=== PATIENT | female | born 1955 | race Caucasian/White ===

== ENCOUNTER 2022-09-05 08:31 | Outpatient (CLI) | payer MEDICARE, OTHER, SELFPAY ==
[2022-09-05 12:10] LABS: Chloride* 107 mmol/L (96-114); Potassium* 4.7 mmol/L (3.6-5.1); Sodium* 139 mmol/L (135-149)
[2022-09-05 12:13] LABS: Blood Urea Nitrogen* 14 mg/dL (7-30); Carbon Dioxide* 24 mmol/L (20-32); Cholesterol* 216 mg/dL (90-199); Creatinine* 0.7 mg/dL (0.5-1.5); Estimated Glomerular Filt Rate 94 ml/min; Glucose* 83 mg/dL (60-115); Triglycerides* 88 mg/dL (40-149)
[2022-09-05 12:14] LABS: Calcium* 8.9 mg/dL (8.4-10.6); HDL Cholesterol* 65 mg/dL (>=50); LDL Cholesterol Calculated 133 mg/dL (<100)
== END 2022-09-05 08:32 | disposition home or self-care (01) ==
PROVIDERS: PCP Family Medicine; Visit Provider Family Medicine
DX: I10 Essential (primary) hypertension (principal); E78.5 Hyperlipidemia, unspecified
CPT/HCPCS: 80048; 80061

== ENCOUNTER 2022-12-05 14:58 | Outpatient (CLI) | payer MEDICARE, OTHER, SELFPAY ==
--- NOTE | 2022-12-05 15:20 | CRLHL7_ITS ---
For Patients: As a result of the Century Cures Act, medical imaging exams and procedure reports are released immediately into your electronic medical record. You may view this report before your referring provider. If you have questions, please contact your health care provider. BILATERAL SCREENING MAMMOGRAM WITH COMPUTER-AIDED DETECTION AND TOMOSYNTHESIS TECHNIQUE: CC and MLO views were obtained. These mammographic images have been obtained using full-field digital technique. These mammographic images were interpreted with the benefit of computer-aided detection. Breast Tomosynthesis was used in this interpretation. COMPARISON FILM: 09/24/21, 08/21/20. FINDINGS: There are scattered areas of fibroglandular density IMPRESSION: There is no radiographic evidence for malignancy. ASSESSMENT: BI-RADS Category 2: Benign RECOMMENDATION: Routine screening mammogram in 1 year. A lay language report of this examination will be provided to the patient. Charles Karimi M.D. Diagnostic Radiologist [email or web address] JUSTYN/Dictated by: Charles Karimi MD @ 12/08/2022 10:16:00 AM (Electronically Signed)
== END 2022-12-05 14:59 | disposition home or self-care (01) ==
LOC: MAMMO 15:01
PROVIDERS: PCP Family Medicine; Visit Provider Family Medicine
DX: Z12.31 Encounter for screening mammogram for malignant neoplasm of breast (principal)
CPT/HCPCS: 77063; 77067

== ENCOUNTER 2023-09-18 11:27 | Outpatient (CLI) | payer MEDICARE, OTHER, SELFPAY | END 2023-09-18 11:28 | disposition home or self-care (01) | LOC: NFLDREF 09-19 02:33 | PROVIDERS: PCP Family Medicine; Referring Provider Family Medicine; Visit Provider Family Medicine | DX: I10 Essential (primary) hypertension (principal); E78.2 Mixed hyperlipidemia; K21.9 Gastro-esophageal reflux disease without esophagitis; H61.21 Impacted cerumen, right ear | CPT/HCPCS: 80048; 80061 ==

== ENCOUNTER 2023-11-10 15:20 | Outpatient (CLI) | payer MEDICARE, OTHER, SELFPAY ==
--- OUTSIDE RECORDS SUMMARY | 2023-11-10 15:23 | XMS_ITS | Clinical Summary ---
Author Name Unknown Organization [facility] Address [place], [place] [address] Care Team Providers Care Photo Equipment Technician Name Role Phone Charles Carreno MD Primary Care Provider + Allergies No known active allergies Medications Medication Sig Dispensed Refills Start Date End Date Status multivitamin (MVI) tablet Take 1 tablet by mouth once daily. 0 06/13/2013 Active Lactobacillus acidophilus (PROBIOTIC) 10 billion cell cap Take by mouth. 0 07/20/2015 Acti ve calcium carbonate CHEWABLE (TUMS) 750 mg chewable tablet Take 1 tablet by mouth 3 times daily with meals. 0 07/20/2015 Active omeprazole (PRILOSEC) 20 mg Delayed-Release capsuleIndications:Ga stroesophageal reflux disease, esophagitis presence not specified Take 1 capsule by mouth once daily before a meal. 90 capsule 1 07/31/2016 Active letrozole (FEMARA) 2.5 mg tabletIndications:Arcelia madelin cancer of right breast (HC) Take 1 Tablet (2.5 mg) by mouth once daily. 90 Tablet 2 07/26/2021 Active lisinopril-hydrochlor othiazide 20-12.5 mg tablet (PRINZIDE)Indications :Hypertension, unspecified type Take 1 Tablet by mouth once daily. 90 Tablet 0 09/18/2021 Active Active Problems Problem Noted Date Diagnosed Date Ileitis 03/19/2018 Overview: Colonoscopy 03/2018 ulceration of ileal colonic colonic anastomosis, possible Crohn's disease, recommend follow-up to discuss, repeat in 10 years Malignant neoplasm of central portion of female breast 10/02/2016 Hypertension 07/28/2012 Immunizations Name Administration Dates Next Due Influenza RIV4 (Age 18+ Years) PRESERV FREE 10/2018 Influenza Virus, Unspecified 05/05/2014 Influenza, IIV3 (Age >=3 years) 07/20/2015,06/13,07/28/2012 Influenza, IIV4 06/29/2018,07/05/2017,07/14/2016 Influenza, IIV4 (=>6mos) MDV 07/02/2017 Influenza, Inactivated IIV3 (Age 65+ Years) Preserv Free 07/02/2020 Pneumococcal Poly,23-Valent (Pneumovax) 08/21/20 20 Pneumococcal conj 13-Valent (Prevnar 13) 019 Tdap 06/13/2013 Tetanus Toxoid 06/05/2013 Zoster (Zostavax-ZVL, live) 04/29/2014 Family History Medical History Relation Name Comments Other Father copd Thyroid Disease Father Cancer-breast No Family History Relation Name Status Comments Father Alive Social History Tobacco Use Types Packs/Day Years Used Date Smoking Tobacco: Former Cigarettes 1 28 0 10/1971 - 10/1999 Smokeless Tobacco: Never Tobacco Cessation:Counseling Given: Yes Alcohol Use Standard Drinks/Week Comments Yes 14 (1 standard drink = 0.6 oz pu re alcohol) 2/day PHQ-2 Answer Date Recorded PHQ-2 TOTAL SCORE 0 08/21/2020 Social Connections Answer Date Recorded Frequency of Communication with Friends and Fami ly Not on file 10/05/2021 Financial Resource Strain Answer Date R ecorded Difficulty of Paying Living Expenses Not on file 10/05/2021 Difficulty of Paying Living Expenses Not on file 10/05/2021 Sex and Gender Information Value Date Recorded Sex Assigned at Not on file Gender Identity Not on file Sexual Orientation Not on file Obstetrics History Para Term AB IAB SAB Ectopic Multiple Livin g Live Births 1 1 1 Date Outcome GA Total Labor Labor/2nd/3rd Weight Sex Delivery Anes PTL Va A1 A5 Name Cl in Term Last Filed Vital Signs Vital Sign Reading Time Taken Comments Blood Pressure 112/79 08/21/2020 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 Pulse 69 08/21/2020 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 Temperature 37.1 ??C (98.7 ??F) 08/21/2020 9:56 AM CS T Respiratory Rate - - Oxygen Saturation 95% 08/21/2020 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 Inhaled Oxygen Concentration - - Weight 78.8 kg (173 lb 12.8 oz) 08/21/2020 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 Height 162.5 cm (5' 3.98) 08/21/2020 9:56 AM CS T Body Mass Index 29.86 08/21/2020 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 Plan of Treatment Health Maintenance Due Date Last Done Comments COVID-19 vaccine series (#1) 1955 Zoster (shingles) series for age 50+ (2 of 3) 06/24/2014 04/29/2014 DEXA/DXA scan for age 65+ 2019 11/03/2016 BMI (ht and wt on same day) for age 18+ 08/21/2021 08/21/2020, 08/18/2019, 08/10/2018, Additional history exists Depression screening for age 12+ 08/21/2021 08/21/2020, 08/18/2019, 08/10/2018, Additional history exists Mammogram for age 45-75 08/21/2021 08/21/20 20, 08/18/2019, 08/10/2018, Additional history exists Medicare Wellness for age 65+ 08/22/2021 08/21/2020, 08/18/2019 Influenza for age 65+ 06/05/2023 07/02/2020 , 07/05/2019, 06/29/2018, Additional history exists Tetanus booster 06/13/2023 06/13/2013, 06/13/2013 Lipids for age 45-75 08/21/2025 08/21/2020, 08/18/2019, 08/10/2018, Additional history exists Colonoscopy through age 75 03/18/2028 03/18/2018, Tdap Completed 06/13/2013 Hepatitis C screening for ag e 18-79 Completed 08/06/2017 Pneumococcal series for age 65+ Completed 0, 07/05/2019 Care Teams Photo Equipment Technician Relationship Specialty Start Date End Date Charles Carreno MD [address] [place] [address] PCP - General Family Practice 07/26/21
--- NOTE | 2023-11-10 15:40 | CRLHL7_ITS ---
For Patients: As a result of the Century Cures Act, medical imaging exams and procedure reports are released immediately into your electronic medical record. You may view this report before your referring provider. If you have questions, please contact your health care provider. BILATERAL DIGITAL SCREENING MAMMOGRAM WITH TOMOSYNTHESIS AND COMPUTER-AIDED DETECTION CLINICAL HISTORY: Routine screening exam. COMPARISON: 12/05/2022, 09/24/2021, 08/21/20. TECHNIQUE: Digital mammogram in CC and MLO projections including computer-aided detection (CAD). Tomosynthesis utilized. BREAST COMPOSITION: There are areas of scattered fibroglandular density. FINDINGS: RIGHT Breast: Focal asymmetric density lateral RIGHT breast 7 cm from the nipple. LEFT Breast: No suspicious findings. IMPRESSION: RIGHT breast asymmetry/mass. RECOMMENDATIONS: Additional mammographic views of the RIGHT breast including 3D spot compression CC/MLO. RIGHT breast ultrasound may also be required. BI-RADS Category 0: Incomplete: Need Additional Imaging Evaluation and/or Prior Mammograms for Comparison [facility] will contact the patient for follow-up. A lay language report of this examination will be provided to the patient. Dictated by Charles Karimi MD @ 11/12/2023 12:05:20 PM claribelj/Dictated by: Charles Karimi MD @ 11/12/2023 12:05:00 PM (Electronically Signed)
== END 2023-11-10 15:21 | disposition home or self-care (01) ==
LOC: MAMMO 15:21
PROVIDERS: PCP Family Medicine; Visit Provider Family Medicine
DX: Z12.31 Encounter for screening mammogram for malignant neoplasm of breast (principal); N63.20 Unspecified lump in the left breast, unspecified quadrant
CPT/HCPCS: 77063; 77067

== ENCOUNTER 2023-11-12 14:08 | Outpatient (CLI) | payer MEDICARE, OTHER, SELFPAY ==
--- OUTSIDE RECORDS SUMMARY | 2023-11-12 14:28 | XMS_ITS | Clinical Summary ---
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 Pulse 69 08/21/2020 9:56 AM TRAFFIC SIGNAL SUPERVISOR MAINTENANCE Temperature 37.1 ??C (98.7 ??F) 08/21/2020 9:56 AM CS T Respiratory Rate - - Oxygen Saturation 95% 08/21/2020 9:56 AM TRAFFIC SIGNAL SUPERVISOR MAINTENANCE Inhaled Oxygen Concentration - - Weight 78.8 kg (173 lb 12.8 oz) 08/21/2020 9:56 AM TRAFFIC SIGNAL SUPERVISOR MAINTENANCE Height 162.5 cm (5' 3.98) 08/21/2020 9:56 AM CS T Body Mass Index 29.86 08/21/2020 9:56 AM TRAFFIC SIGNAL SUPERVISOR 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
--- NOTE | 2023-11-12 14:30 | CRLHL7_ITS ---
For Patients: As a result of the Century Cures Act, medical imaging exams and procedure reports are released immediately into your electronic medical record. You may view this report before your referring provider. If you have questions, please contact your health care provider. DXA BONE MINERAL DENSITY STUDY Current height (in): 63.5. Weight (lb): 180. Menopause age: 49. Ethnicity: White. 1. Have you had a previous hip or vertebral fracture? No. 2. Have you had any fractures during your adult life which did not result from significant trauma (e.g., auto accident)? No. 3. Did either of your parents have a hip fracture? No. 4. Do you smoke? No. 5. Have you ever taken Glucocorticoids? Yes. 6. Do you have rheumatoid arthritis? No. 7. Do you have secondary osteoporosis? No. 8. Do you drink 3 or more alcoholic drinks per day? No. 9. Are you being treated for osteoporosis? No. 10. Have you ever taken any of the following medications: Actonel, Evista, Fosamax, Miacalcin, Reclast, Boniva, Forteo, HRT (i.e. estrogen/hormone therapy), Protelos, Prolia, Vitamin D, Calcium, other ??? please specify. ANSWER: Yes, Vitamin D and Calcium. 11. Do you have any of the following medical conditions: Anorexia or bulimia, asthma or emphysema, end stage renal disease, hyperparathyroidism, any seizure disorders, cancer, inflammatory bowel diseases, hysterectomy, other ??? please specify. ANSWER: No. 12. What was your maximum height (inches)? 64.5. 13. Do you perform weight bearing exercise regularly? No. 14. Do you regularly consume dairy products? Yes. 15. Do you drink caffeinated beverages? Yes. If female: 16. At what age did your period start? 10. 17. Are you premenopausal? No. 18. How many full term pregnancies have you had? 1. 19. Have you ever missed your period for more than 6 months in a row (not including or menopause)? No. TECHNIQUE: Bone mineral density study was performed using the [employer]. FINDINGS: The results of the study expressed as bone mineral density (BMD) are as follows: Lumbar spine L1 to L4: BMD: 1.032 g/cm2. T-score: -0.1 . Z-score: 1.9 . Neck Left: BMD: 0.620 g/cm2. T-score: -2.1 . Z-score: -0.3 . Right: BMD: 0.674 g/cm2. T-score: -1.6 . Z-score: 0.2 . Total Left: BMD: 0.834 g/cm2. T-score: -0.9 . Z-score: 0.6 . Right: BMD: 0.871 g/cm2. T-score: -0.6 . Z-score: 0.9 . IMPRESSION: Osteopenia. *Comparison exams done prior to 03/2020 were performed on different unit, ChiScan. COMPARISON: Compared with scan of 09/25/2021, the bone mineral density has increased by 9.4 percent at the spine and increased by 7.5 percent at the hip. FRAX 10-year Fracture Risk Major Osteoporotic Fracture: 18 percent Hip Fracture: 3.8 percent Reported Risk Factors: US () Neck BMD=0.620, BMI=31.4, glucocorticoids. Charles Karimi M.D. Diagnostic Radiologist [email or web address] SP/Dictated by: Charles Karimi MD @ 11/13/2023 9:58:00 AM (Electronically Signed)
== END 2023-11-12 14:09 | disposition home or self-care (01) ==
LOC: RAD 14:09
PROVIDERS: PCP Family Medicine; Visit Provider Family Medicine
DX: M81.8 Other osteoporosis without current pathological fracture (principal); M85.89 Other specified disorders of bone density and structure, multiple sites; T38.6X5A Adverse effect of antigonadotrophins, antiestrogens, antiandrogens, not elsewhere classified, initial encounter
CPT/HCPCS: 77080

== ENCOUNTER 2023-11-30 10:17 | Outpatient (CLI) | payer MEDICARE, OTHER, SELFPAY ==
--- NOTE | 2023-11-30 10:45 | MM_ITS ---
Patient: NILA SCOTT Facility:?[facility] Patient ID:?[id number] Site Patient ID:?[id number]. Site :?1955 Study:?XRay-Breast Right 3D W/CAD-11/30/2023 10:57:41 AM Ordering Physician:Romain Final Report: DIGITAL DIAGNOSTIC RIGHT MAMMOGRAM USING TOMOSYNTHESIS AND COMPUTER-AIDED DETECTION RIGHT BREAST ULTRASOUND CLINICAL HISTORY: RIGHT breast mass/asymmetry. COMPARISON: 11/10/2023, 12/25/2022, 09/24/2021, 08/21/2020. TECHNIQUE: Digital RIGHT mammogram in two projections. Tomosynthesis and CAD utilized. Real-time ultrasound imaging of RIGHT breast with imaging documentation. Scanning was performed by both the technologist and the radiologist. BREAST COMPOSITION: There are areas of scattered fibroglandular density. FINDINGS: 3D spot compression CC/MLO right breast mammogram images submitted. No architectural distortion. Decreased conspicuity of previously noted density. No suspicious calcifications. No adenopathy. Postop changes of lumpectomy. Targeted right breast ultrasound performed at 10 o`clock 7 cm from the nipple in the area of asymmetric density. In this location, there is a small hypoechoic structure at mid depth measuring 3 x 2 x 2 millimeters. IMPRESSION: Indeterminate small hypoechoic structure at mid depth right breast 10 o`clock 7 cm from the nipple measuring 3 millimeters. RECOMMENDATIONS: Ultrasound-guided core needle biopsy. Results and recommendations discussed with the patient. BI-RADS Category 4: Suspicious A lay language report of this examination will be provided to the patient. Dictated by Charles Karimi MD @ 11/30/2023 11:33:12 AM jj/Dictated by: Charles Karimi MD @ 11/30/2023 11:33:00 AM Signed by:?Charles Karimi MD @11/30/2023 1:01:42 PM (Electronic Signature)
--- NOTE | 2023-11-30 11:15 | US_ITS ---
Patient: NILA SCOTT Facility:?[facility] Patient ID:?[id number] Site Patient ID:?[id number]. Site :?1955 Study:?US-Breast Right Dr. Karimi to read-11/30/2023 11:06:19 AM Ordering Physician:ANTONIO Final Report: PLEASE SEE DIGITAL DIAGNOSTIC RIGHT MAMMOGRAM PERFORMED SAME DAY CRL:[email or web address] linares/Dictated by: Charles Karimi MD @ 11/30/2023 11:33:00 AM Signed by:?Charles Karimi MD @11/30/2023 1:01:43 PM (Electronic Signature)
== END 2023-11-30 10:18 | disposition home or self-care (01) ==
LOC: MAMMO 10:18
PROVIDERS: PCP Family Medicine; Visit Provider Family Medicine
DX: N63.10 Unspecified lump in the right breast, unspecified quadrant (principal); R92.8 Other abnormal and inconclusive findings on diagnostic imaging of breast
CPT/HCPCS: 76642; 77065; G0279

== ENCOUNTER 2023-12-11 10:57 | Outpatient (CLI) | payer MEDICARE, OTHER, SELFPAY ==
--- NOTE | 2023-12-11 11:15 | US_ITS ---
Patient: NILA SCOTT Facility:?[facility] Patient ID:?[id number] Site Patient ID:?[id number]. Site :?1955 Study:?US-Breast Right RT BREAST BIOPSY / DR. HARDEN TO RE-12/11/2023 11:53:24 AM Ordering Physician:?CHARLES BARBOSA M.D. Final Report: ULTRASOUND-GUIDED RIGHT BREAST BIOPSY AND POST-BIOPSY DIGITAL MAMMOGRAM FOR BIOPSY MARKER PLACEMENT CLINICAL HISTORY: Indeterminate nodular density. COMPARISON STUDIES: 11/30/2023 TECHNIQUE: Real-time ultrasound with image documentation was used for targeting the breast lesion. Core biopsy specimens were obtained using an automated gun with an 18- gauge biopsy needle. Post-biopsy CC and ML digital mammograms were obtained to document position of the biopsy marker. CONSENT and TIME OUT: The procedure, risks, and alternatives were explained to the patient and a consent was signed. [place] Protocol was followed including pre-procedure verification that relevant information/documentation was available, reviewed and properly matched to the patient; consent accurate and complete; and equipment and supplies available. Time Out was conducted just prior to starting procedure to verify the four required elements: patient identity, correct side/site marked (if applicable), procedure, relevant images/results properly labeled and displayed (if applicable). PROCEDURE: The patient was positioned supine on the ultrasound table. The breast was prepped with ChloraPrep. 8 cc of 1% lidocaine used for local anesthesia. Core samples were obtained. A sterile metal biopsy clip was placed percutaneously to kiko the lesion position within the breast. The specimens were placed in 10% formalin and sent to the pathology department. Pressure was held on the biopsy site until all bleeding subsided. The skin incision was closed with Steri- Strips. An ice pack was positioned over the biopsy site. Post-biopsy instructions were reviewed with the patient, and a written copy was given to her. LATERALITY: Right breast LESION: Hypoechoic nodular like structure measuring 3 x 2 x 2 millimeter at 10 o`clock 7 cm from the nipple. SUSPICION FOR MALIGNANCY: Medium, possible fibrocystic change, rule out malignancy. NUMBER OF SAMPLES: 5 BIOPSY CLIP SHAPE: Oval PROXIMITY OF CLIP TO TARGET: Within the lesion IMPRESSION: Ultrasound-guided right breast biopsy. When the pathology report is available, an addendum to this report will be made. ACR not applicable. Dictated by Charles Harden MD @ 12/11/2023 11:58:[address]/Dictated by: Charles Harden MD @ 12/11/2023 11:58:[address]/Dictated by: Charles Harden MD @ 12/11/2023 11:58:00 AM Signed by:?Charles Harden MD @12/11/2023 2:59:44 PM --ADDENDUM-- ADDENDUM: Pathology consistent with benign hemangioma type lesion. No atypia or malignancy. This is concordant. Resume routine screening mammography. Dictated by: Charles Harden MD @12/15/2023 12:33:32 PM/CRL:pjt Signed by:?Charles Harden MD @12/15/2023 2:35:12 PM (Electronic Signature)
--- NOTE | 2023-12-11 12:00 | MM_ITS ---
Patient: NILA SCOTT Facility:?[facility] Patient ID:?[id number] Site Patient ID:?[id number] Site :?1955 Study:?XRay-Breast Right 2D w/ CAD POST CLIP PLACEMENT-12/11/2023 9:45:30 AM Ordering Physician:Romain Final Report: PLEASE SEE RIGHT BREAST ULTRASOUND-GUIDED BIOPSY OF SAME DAY. CRL:michael RD/Dictated by: Charles Karimi MD @ 12/14/2023 9:50:00 AM Signed by:?Charles Karimi MD @12/14/2023 11:20:23 AM (Electronic Signature)
== END 2023-12-11 10:58 | disposition home or self-care (01) ==
LOC: US 10:58
PROVIDERS: PCP Family Medicine; Visit Provider Family Medicine
DX: N63.10 Unspecified lump in the right breast, unspecified quadrant (principal); R92.8 Other abnormal and inconclusive findings on diagnostic imaging of breast
CPT/HCPCS: 19083; 77065; 88305; A4648; A4649

== ENCOUNTER 2024-01-07 13:10 | Outpatient (RCR) | payer MEDICARE, OTHER, SELFPAY | END 2024-07-05 23:59 | disposition home or self-care (01) | LOC: CCIC 13:10 | PROVIDERS: PCP Family Medicine; Visit Provider Physician Assistant | DX: C50.911 Malignant neoplasm of unspecified site of right female breast (principal); Z17.0 Estrogen receptor positive status [ER+] | CPT/HCPCS: 99213; G0463 ==

== ENCOUNTER 2024-09-20 11:06 | Outpatient (CLI) | payer MEDICARE, OTHER, SELFPAY | END 2024-09-20 11:07 | disposition home or self-care (01) | PROVIDERS: PCP Family Medicine; Visit Provider Family Medicine | DX: E78.2 Mixed hyperlipidemia (principal); I10 Essential (primary) hypertension | CPT/HCPCS: 80048; 80061 ==

== ENCOUNTER 2024-12-06 12:37 | Outpatient (CLI) | payer MEDICARE, OTHER, SELFPAY ==
--- NOTE | 2024-12-06 13:00 | CRLHL7_ITS ---
For Patients: As a result of the Century Cures Act, medical imaging exams and procedure reports are released immediately into your electronic medical record. You may view this report before your referring provider. If you have questions, please contact your health care provider. BILATERAL SCREENING MAMMOGRAM WITH COMPUTER-AIDED DETECTION AND TOMOSYNTHESIS TECHNIQUE: CC and MLO views were obtained. These mammographic images have been obtained using full-field digital technique. These mammographic images were interpreted with the benefit of computer-aided detection. Breast Tomosynthesis was used in this interpretation. COMPARISON FILM: 12/11/23, 11/10/23, 12/05/22. FINDINGS: There are scattered areas of fibroglandular density. IMPRESSION: There is no radiographic evidence for malignancy. ASSESSMENT: BI-RADS Category 1: Negative RECOMMENDATION: Routine screening mammogram in 1 year. A lay language report of this examination will be provided to the patient. Charles Karimi M.D. Diagnostic Radiologist [email or web address] SP/Dictated by: Charles Karimi MD @ 12/07/2024 9:12:00 AM (Electronically Signed)
== END 2024-12-06 12:38 | disposition home or self-care (01) ==
LOC: MAMMO 12:38
PROVIDERS: PCP Family Medicine; Visit Provider Family Medicine
DX: Z12.31 Encounter for screening mammogram for malignant neoplasm of breast (principal)
CPT/HCPCS: 77063; 77067

== ENCOUNTER 2025-09-26 10:54 | Outpatient (CLI) | payer MEDICARE, OTHER, SELFPAY | END 2025-09-26 10:55 | disposition home or self-care (01) | PROVIDERS: PCP Family Medicine; Visit Provider Family Medicine | DX: I10 Essential (primary) hypertension (principal) | CPT/HCPCS: 80048; 80061; 85025 ==